=== PATIENT | female | born 2000 | race Two or more races ===

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

== ENCOUNTER 2022-12-10 14:52 | Outpatient (REF) | payer OTHER, MEDICAID, SELFPAY ==
[2022-12-10 19:01] LABS: HCT 40.1 % (36.0-46.0); HGB 13.2 g/dL (11.2-15.7); MCH 28.7 pg (27.0-33.0); MCHC 32.9 % (32.0-36.0); MCV 87 fL (80-95); MPV 10.6 fL (8.0-11.0); Platelet Count 232 10^3/uL (130-400); RDW 12.6 % (11.7-14.6); RDW-SD 40.4 fL; WBC 5.63 10^3/uL (4.4-10.8)
[2022-12-10 19:28] LABS: ALT 30 U/L (14-59); AST 30 U/L (15-37); Alkaline Phosphatase 72 U/L (46-116); Anion Gap 11.1 mmol/L (3-11); BUN 17 mg/dL (7-18); Bilirubin, Total 1.9 mg/dL (0.2-1.0); CO2 24.9 mmol/L (21.0-32.0); CREATININE 0.8 mg/dL (0.55-1.02); Calcium 8.9 mg/dL (8.5-10.1); Calculated LDL 83 mg/dL (<100); Chloride 105 mmol/L (98-107); Cholesterol 163 mg/dL (<200); Estimated GFR 108.11 (mL/min/1.73m2); Glucose 86 mg/dL (74-106); HDL Cholesterol 73 mg/dL (40-60); Potassium 3.9 mmol/L (3.5-5.1); Sodium 141 mmol/L (136-145); TSH (W/Ref FT4) 1.98 uIU/mL (0.36-3.74); Total Protein 7.4 g/dL (6.4-8.2); Triglyceride 38 mg/dL (<150)
== END 2022-12-10 14:53 | disposition home or self-care (01) ==
LOC: NCHCN 14:52
PROVIDERS: PCP Nurse Practitioner Family; Visit Provider Nurse Practitioner Family
DX: Z00.00 Encounter for general adult medical examination without abnormal findings (principal)
CPT/HCPCS: 80053; 80061; 85027; 84443

== ENCOUNTER 2023-02-11 18:25 | Outpatient (REF) | payer OTHER, MEDICAID, SELFPAY ==
[2023-02-11 15:26] LABS: ALT 35 U/L (14-59); AST 29 U/L (15-37); Alkaline Phosphatase 79 U/L (46-116); Anion Gap 7.1 mmol/L (3-11); BUN 14 mg/dL (7-18); Bilirubin, Direct 0.2 mg/dL (0.0-0.2); CO2 28.9 mmol/L (21.0-32.0); CREATININE 0.8 mg/dL (0.55-1.02); Calcium 9.3 mg/dL (8.5-10.1); Chloride 105 mmol/L (98-107); Estimated GFR 108.11 (mL/min/1.73m2); Glucose 80 mg/dL (74-106); Potassium 3.9 mmol/L (3.5-5.1); Sodium 141 mmol/L (136-145); Total Protein 7.8 g/dL (6.4-8.2)
== END 2023-02-11 18:26 | disposition home or self-care (01) ==
LOC: NCHCN 18:25
PROVIDERS: PCP Nurse Practitioner Family; Visit Provider Nurse Practitioner Family
DX: E80.6 Other disorders of bilirubin metabolism (principal)
CPT/HCPCS: 80053; 82248

== ENCOUNTER 2023-09-16 20:31 | Outpatient (REF) | payer OTHER, MEDICAID, SELFPAY ==
[2023-09-16 15:00] LABS: ESR 6 mm/hr (0-20)
[2023-09-16 22:39] LABS: C-Reactive Protein < 0.50 mg/dL (<or=0.5)
[2023-09-17 15:04] LABS: ANA Interpretation Positive (Negative); ANA Titer Pattern 1:320 Speckled
== END 2023-09-16 20:32 | disposition home or self-care (01) ==
LOC: NCHCN 20:31
PROVIDERS: PCP Nurse Practitioner Family; Visit Provider Nurse Practitioner Family
DX: R68.89 Other general symptoms and signs (principal)
CPT/HCPCS: 85652; 86038; 86140

== ENCOUNTER 2023-10-21 18:17 | Outpatient (REF) | payer MEDICAID, SELFPAY ==
[2023-10-21 21:07] LABS: Abs Immature Grans 0.01 10^3/uL (0.0-0.06); Absolute Basophil Count 0.04 10^3/uL (0.0-0.2); Absolute Eosinophil Count 0.15 10^3/uL (0.0-0.7); Absolute Lymphocyte Count 2.01 10^3/uL (1.2-3.4); Absolute Monocyte Count 0.41 10^3/uL (0.1-0.8); Absolute Neutrophil Count 3.49 10^3/uL (1.2-6.7); Basophils % 0.7 %; Eosinophils % 2.5 %; Immature Grans % 0.2 %; Lymphocytes % 32.9 %; MCH 29.4 pg (27.0-33.0); MCHC 32.6 % (32.0-36.0); MCV 90 fL (80-95); Monocytes % 6.7 %; Platelet Count 261 10^3/uL (130-400); RBC 4.76 10^6/uL (3.93-5.22); RDW 12.4 % (11.7-14.6); RDW-SD 40.8 fL; WBC 6.11 10^3/uL (4.4-10.8)
[2023-10-21 21:27] LABS: ALT 23 U/L (14-59); AST 16 U/L (15-37); Albumin 4.2 g/dL (3.4-5.0); Alkaline Phosphatase 77 U/L (46-116); Anion Gap 12.1 mmol/L (3-11); BUN 13 mg/dL (7-18); Bilirubin, Total 0.8 mg/dL (0.2-1.0); CO2 26.9 mmol/L (21.0-32.0); CREATININE 0.7 mg/dL (0.55-1.02); Chloride 107 mmol/L (98-107); Estimated GFR 126.11 (mL/min/1.73m2); Glucose 91 mg/dL (74-106); Sodium 146 mmol/L (136-145); Total Protein 7.5 g/dL (6.4-8.2)
[2023-10-26 15:47] LABS: dsDNA Ab, IgG <22.0 IU/mL (<27.0)
[2023-10-26 15:52] LABS: RNP Ab, IgG <6.0 CU (<20.0); Ro60 Ab, IgG <7.0 CU (<20.0); SS-A/Ro, IgG <2.3 CU (<20.0); SS-B (La) Ab, IgG <3.3 CU (<20.0); Sm (Smith) Ab, IgG <8.0 CU (<20.0)
== END 2023-10-21 18:18 | disposition home or self-care (01) ==
LOC: NCHCN 18:17
PROVIDERS: PCP Nurse Practitioner Family; Visit Provider Nurse Practitioner Family
DX: M25.59 Pain in other specified joint (principal)
CPT/HCPCS: 80053; 85025; 86225; 86235

== ENCOUNTER 2025-03-13 11:33 | Outpatient (CLI) | payer MEDICAID, SELFPAY | END 2025-03-13 11:34 | disposition home or self-care (01) | PROVIDERS: PCP Nurse Practitioner Family; Visit Provider Nurse Practitioner Family | DX: R00.2 Palpitations (principal) | CPT/HCPCS: 93246 ==

== ENCOUNTER 2025-04-03 07:22 | Outpatient (CLI) | payer MEDICAID, SELFPAY ==
--- NOTE | 2025-04-03 09:03 | W.CARDEVENT ---
Date of service: 04/03/25 Time of Service: 09:03 Cardiac Event Recorder Referring Provider:: Sanaz Santiago Indications:: palpitations Cardiac Event Note: Cardiac event monitor, recorded 13 days and 23 hours Rhythm throughout was sinus with an average heart rate of 78. Minimum was 43, maximum 159 There were rare ventricular ectopic beats. Some complexes labeled PVCs were artifact There were a very rare isolated atrial premature beats There was no atrial fibrillation, no SVT, no high-grade AV block, no pauses greater than 3 seconds Multiple symptoms were reported, all of which were associated with sinus rhythm, heart rates ranging from 77-1 42
== END 2025-04-03 07:23 | disposition home or self-care (01) ==
LOC: CARDOPNVT 07:22
PROVIDERS: PCP Nurse Practitioner Family; Visit Provider Internal Medicine Cardiovascular Disease
DX: R00.2 Palpitations (principal); I49.9 Cardiac arrhythmia, unspecified
CPT/HCPCS: 93248